=== PATIENT | male | born 1960 | race Caucasian/White ===

== ENCOUNTER 2019-10-08 19:51 | Inpatient (IN) | payer OTHER, SELFPAY ==
[2019-10-08 20:17] VITALS: BP 201/98; PULSE 101; RESP 22; TEMP 36.6; O2SAT 98; BMI 33.9
--- NOTE | 2019-10-08 20:32 | XR_ITS ---
WS: [id number] EXAM: AP CHEST: PORTABLE UPRIGHT DATE OF EXAM: 10/08/2019, 2038 hours COMPARISON: NONE HISTORY: Patient is 58 years old with chills and nausea and vomiting. Prior open heart surgery. FINDINGS: The cardiac silhouette is normal in size. The mediastinal contours show postop sternotomy changes from prior presumed coronary artery bypass. The pulmonary vascularity is normal. Slight chronic sangeeta ng changes seen. Calcified granuloma right upper hemithorax. Lungs are clear of consolidation. There is no effusion or pneumothorax. Scattered changes of arthritis are seen in the spine. Old postop fu thea changes lower cervical spine. XR/XR chest 1V portable [id number] IMPRESSION: No acute pulmonary disease. Slight chronic lung changes.
--- NOTE | 2019-10-08 20:33 | ED_ITS ---
HPI - Nausea/Vomiting/Diarrhea General: Chief complaint: Nausea/Vomiting/Diarrhea Stated complaint: n/v Time Seen by Provider: 10/08/19 20:27 Source: patient Mode of arrival: ambulatory Limitations: no limitations History of Present Illness: HPI Narrative: Mr. Marquez is a nice 58-year-old male who comes in complaining of vomiting and diarrhea. He states his symptoms have been going on all day. He states he has had similar symptoms in the past but a cause can never be found but he has had to go to the hospital to get IV fluids. He denies any chest pain or shortness of breath. He denies any urinary symptoms. He denies any abdominal pain. Patient has felt chilled and is diaphoretic. He is not aware of any fever. He is not aware of any possible ill exposures. He does not report cough, shortness of breath, loss of sense of taste or loss of sense of smell. Associated nausea: Yes Associated symtoms: Reports nausea; Denies change in vision, chest pain, diaphoresis, dizziness, dysuria, fatigue, headache(s), malaise, palpitations or syncope Review of Systems Const: Reports: chills; Denies: fever(s), body aches, fatigue, malaise or diaphoresis Eyes: Denies: change in vision, blurry vision, photophobia, eye discomfort, eye discharge or eye redness ENMT: Denies: throat pain, odynophagia, hoarseness, swelling of lips/tongue, ear or mastoid pain, ear discharge, change in hearing or nasal discharge Card: Denies: chest pain, palpitations, irregular heart rhythm, edema, lightheadedness, syncope, pre-syncope, dyspnea on exertion or orthopnea Resp: Denies: dyspnea, productive cough, non-productive cough, wheezing, hemoptysis or chest congestion GI: Reports: nausea, vomiting and diarrhea; Denies: abdominal pain, hematemesis, coffee ground emesis, heartburn, constipation, GI cramping, hematochezia or melena : Denies: flank pain, dysuria, urinary frequency, urinary urgency or hematuria Musc: Denies: neck pain, back pain, extremity pain, extremity swelling, joint pain, joint swelling, joint redness, joint warmth or joint stiffness Skin/Breast: Denies: rash, pruritus, erythema or skin tenderness Neuro: Denies: headache(s), numbness in extremities, weakness in extremities, sensory changes, lack of coordination, difficulty walking, dizziness, vertigo, confusion, Slurred speech present or seizure-like activity [place]/Lymph: Denies: easy bruising, easy bleeding, petechiae, purpura or enlarged lymph nodes All/Imm: Denies: urticaria, throat swelling, tongue swelling, facial swelling or acute wheezing PFSH ED PFSH: Medical History (Updated 10/08/19 @ 23:47 by Juju Perez MD) Chronic kidney disease, stage III (moderate) Coronary artery disease DM type 2 (diabetes mellitus, type 2) Hypertension Surgical History Hx of CABG Family History (Updated 10/08/19 @ 23:45 by Juju Perez MD) Other Hypertension Social History (Updated 10/08/19 @ 23:46 by Juju Perez MD) Smoking and tobacco status: never smoked Alcohol intake: current Alcohol intake frequency: holidays/special occasions only Substance/Drug Use: never Household members: family and other Details: Lives with his mother Housing: House Marital status: Single Physical Exam Const: COMMON NORMALS: no acute distress, patient oriented x3, no limitations, healthy appearing and well nourished GENERAL APPEARANCE: cooperative, well kempt, well developed and diaphoretic HENMT: COMMON NORMALS: normocephalic, atraumatic, external ears normal, EAC's normal and Normal external nose present HEAD & SCALP: normal to inspection, normocephalic and atraumatic FACE & SINUS: normal facial exam and face symmetric NOSE: Normal external nose present and Normal nares present EXTERNAL EAR: Yes external ears normal EXTERNAL AUDITORY CANAL: EAC's normal MOUTH: Normal oral and palatal mucosa present, lip normal and tongue normal Eye: COMMON NORMALS: Equal, round and reactive pupils present and conjunctivae normal GENERAL EYE: appearance normal, both eyes and all related structures ALIGNMENT: Yes alignment normal PERIORBITAL: periorbital findings normal EYELID: eyelids normal CONJUNCTIVA: Yes conjunctivae normal SCLERA: sclerae normal PUPIL: Yes Equal, round and reactive pupils present Neck/C-Spine: COMMON NORMALS: full ROM, no lymphadenopathy, supple, no meningeal signs and no JVD GENERAL: Yes normal visual inspection and Yes trachea midline Chest: COMMONS NORMALS: normal inspection of the chest and normal palpation of entire chest wall Resp: COMMON NORMALS: normal respiratory effort, No retractions, No use of accessory muscles and clear to auscultation bilaterally EFFORT & INSPECTION: Yes able to speak in complete sentences and Yes symmetric chest movement AUSCULTATION: clear to auscultation bilaterally, no crackles, no rales, no rhonchi and no wheezes Cardio: COMMON NORMALS: no JVD, regular rate, regular rhythm, S1 normal heart sound present and S2 normal heart sound present RATE: regular rate RHYTHM: regular rhythm HEART SOUNDS: S1 normal heart sound present, S2 normal heart sound present, no click, no gallops, no murmurs, no rubs and abnormal split S2 GI: COMMON NORMALS: Soft to palpation and No hepatosplenomegaly present PALPATION: Yes Soft to palpation, No Tenderness to palpation present (GI), No Guarding due to palpation present (GI), No Rigid due to palpation, Yes No hepatosplenomegaly present, No Hernia present, No Palpable mass present and No Pulsatile mass present : COMMON NORMALS: Yes no CVA tenderness BLADDER/KIDNEY EXAM: Yes no CVA tenderness Back/Pelvis: COMMON NORMALS: no CVA tenderness, thoracic and lumbar spine normal to inspection, no thoracic nor lumbar tenderness and thoraco-lumbar ROM normal Extremity: COMMON NORMALS: normal to inspection, full ROM, capillary refill normal, no joint enlargement, no clubbing, cyanosis or edema and no calf tenderness Neuro: COMMON NORMALS: patient oriented x3, CN's II-XII intact bilaterally, moves all extremities, no focal motor deficits and no sensory deficits noted MENINGEAL SIGNS: Yes no meningeal signs SPEECH: speech normal Psych: COMMON NORMALS: mental status grossly normal, Normal thought process present, cooperative, normal affect, speech normal and activity/motor behavior normal APPEARANCE: Yes well kempt SPEECH: Yes normal speech THOUGHT PROCESS: Normal thought process present Skin: COMMON NORMALS: no rashes or lesions noted, turgor normal, no jaundice, no petechiae and no mottling GENERAL SKIN EXAM: no rashes or lesions noted and turgor normal Course Vital Signs: Vital signs: Vital Signs Temperature 99.7 F H 10/09/19 10:10 Pulse Rate 91 10/09/19 10:10 Respiratory Rate 18 10/09/19 10:10 Blood Pressure 170/76 10/09/19 10:10 Pulse Oximetry 94 10/09/19 10:10 MDM - Nausea/Vomiting/Diarrhea Lab Data: Labs: Lab Results 10/08/19 10/08/19 10/08/19 Range/Units 21:00 21:00 21:00 WBC 11.8 H (4.0-10.0) 10^3/ uL RBC 5.83 H (4.1-5.3) 10^6/u L Hgb 17.2 H (11.7-16.6) g/dL Hct 49.9 (42.0-52.0) % MCV 85.6 (80-94) fL MCH 29.5 (28.0-34.0) pg MCHC 34.5 (30.0-36.0) g/dL RDW 11.8 L (12.1-15.1) % Plt Count 264 (130-400) 10^3/c mm MPV 10.1 (7.4-10.4) fL Neut % (Auto) 79.8 % Lymph % (Auto) 12.6 % [place] % (Auto) 6.5 % Eos % (Auto) 0.4 % Baso % (Auto) 0.3 % Neut # (Auto) 9.40 H (1.8-7.7) 10^3/u L Lymph # (Auto) 1.5 (0.8-4.8) 10^3/u L [place] # (Auto) 0.8 (0.2-0.9) 10^3/u L Eos # (Auto) 0.1 (0.0-0.8) 10^3/u L Baso # (Auto) 0.0 (0.0-0.1) 10^3/u L Nucleated RBC % (a uto) 0 % Nucleated RBCs # 0.0 /100WBC D-Dimer (0-0.59) ug/mIFE U Specimen Type Sample Site ABG pH (7.35-7.45) ABG pCO2 (35-45) mmHg ABG pO2 (80.0-100.0) mmH g ABG HCO3 (22-26) mmol/L ABG Base Excess (-2.0-2.0) mmol/ L Bj Test Hematocrit (42-52) % O2 Delivery Device FiO2 % Angle Shear Operator ID Sodium 133 L (136-145) mmol/L Potassium 4.8 (3.5-5.1) mmol/L Chloride 91 L (98-107) mmol/L Carbon Dioxide 25 (22-29) mmol/L Anion Gap 21.8 H (5-19) BUN 20 (6-20) mg/dL Creatinine 1.3 H (0.7-1.2) mg/dL GFR Calculation 56.7 L (90-130) mL/min Glucose 241 H (65-115) mg/dL Calculated Osmolal ity 280 L (285-295) mOsm/k g Lactic Acid 3.2 H (0.5-2.2) mmol/L Calcium 10.5 (8.5-10.5) mg/dL Magnesium 1.8 (1.7-2.3) mg/dL Total Bilirubin 0.8 (0.15-1.2) mg/dL AST 49 H (0-40) U/L ALT 57 H (0-41) U/L Alkaline Phosphata se 56 (40-130) IU/L Troponin T Baselin e (0-15) ng/L Troponin T 120 Min [place] (0-15) ng/L Delta Troponin T (0-10) ABS# Total Protein 7.4 (6.6-8.7) g/dL Albumin 4.9 (3.5-5.2) g/dL Globulin 2.5 (1.3-4.6) g/dL Lipase 29 (13-60) U/L Urine Color (Yellow) Urine Appearance (CLEAR) Urine pH (5-7) Ur Specific Gravit y (1.005-1.030) Urine Protein (Negative) Urine Glucose (UA) (Normal) Urine Ketones (Negative) Urine Blood (Negative) Urine Nitrate (Negative) Urine Bilirubin (NEGATIVE) Urine Urobilinogen (Negative) mg/dL Ur Leukocyte She ase (Negative) Urine RBC (0-2) /hpf Urine WBC (0-5) /hpf Ur Squamous Epith Cells (0-5) Amorphous Sediment Urine Bacteria (NONE) Serum Ketones Negative (Negative) SARS-CoV-2 Ag (Rap id) (Negative) 10/08/19 10/08/19 10/08/19 Range/Units 21:00 21:00 21:19 WBC (4.0-10.0) 10^3/ uL RBC (4.1-5.3) 10^6/u L Hgb (11.7-16.6) g/dL Hct (42.0-52.0) % MCV (80-94) fL MCH (28.0-34.0) pg MCHC (30.0-36.0) g/dL RDW (12.1-15.1) % Plt Count (130-400) 10^3/c mm MPV (7.4-10.4) fL Neut % (Auto) % Lymph % (Auto) % [place] % (Auto) % Eos % (Auto) % Baso % (Auto) % Neut # (Auto) (1.8-7.7) 10^3/u L Lymph # (Auto) (0.8-4.8) 10^3/u L [place] # (Auto) (0.2-0.9) 10^3/u L Eos # (Auto) (0.0-0.8) 10^3/u L Baso # (Auto) (0.0-0.1) 10^3/u L Nucleated RBC % (a uto) % Nucleated RBCs # /100WBC D-Dimer 1.18 H (0-0.59) ug/mIFE U Specimen Type Arterial Sample Site Radial, right ABG pH 7.56 H (7.35-7.45) ABG pCO2 24.0 L (35-45) mmHg ABG pO2 98.5 (80.0-100.0) mmH g ABG HCO3 21.6 L (22-26) mmol/L ABG Base Excess 1.4 (-2.0-2.0) mmol/ L Bj Test Pos Hematocrit 50.0 (42-52) % O2 Delivery Device Room air FiO2 21.0 % Angle Shear Operator ID Harkr Sodium (136-145) mmol/L Potassium (3.5-5.1) mmol/L Chloride (98-107) mmol/L Carbon Dioxide (22-29) mmol/L Anion Gap (5-19) BUN (6-20) mg/dL Creatinine (0.7-1.2) mg/dL GFR Calculation (90-130) mL/min Glucose (65-115) mg/dL Calculated Osmolal ity (285-295) mOsm/k g Lactic Acid (0.5-2.2) mmol/L Calcium (8.5-10.5) mg/dL Magnesium (1.7-2.3) mg/dL Total Bilirubin (0.15-1.2) mg/dL AST (0-40) U/L ALT (0-41) U/L Alkaline Phosphata se (40-130) IU/L Troponin T Baselin e 19 H (0-15) ng/L Troponin T 120 Min [place] (0-15) ng/L Delta Troponin T (0-10) ABS# Total Protein (6.6-8.7) g/dL Albumin (3.5-5.2) g/dL Globulin (1.3-4.6) g/dL Lipase (13-60) U/L Urine Color (Yellow) Urine Appearance (CLEAR) Urine pH (5-7) Ur Specific Gravit y (1.005-1.030) Urine Protein (Negative) Urine Glucose (UA) (Normal) Urine Ketones (Negative) Urine Blood (Negative) Urine Nitrate (Negative) Urine Bilirubin (NEGATIVE) Urine Urobilinogen (Negative) mg/dL Ur Leukocyte She ase (Negative) Urine RBC (0-2) /hpf Urine WBC (0-5) /hpf Ur Squamous Epith Cells (0-5) Amorphous Sediment Urine Bacteria (NONE) Serum Ketones (Negative) SARS-CoV-2 Ag (Rap id) (Negative) 10/08/19 10/08/19 10/08/19 Range/Units 23:00 23:00 23:10 WBC (4.0-10.0) 10^3/ uL RBC (4.1-5.3) 10^6/u L Hgb (11.7-16.6) g/dL Hct (42.0-52.0) % MCV (80-94) fL MCH (28.0-34.0) pg MCHC (30.0-36.0) g/dL RDW (12.1-15.1) % Plt Count (130-400) 10^3/c mm MPV (7.4-10.4) fL Neut % (Auto) % Lymph % (Auto) % [place] % (Auto) % Eos % (Auto) % Baso % (Auto) % Neut # (Auto) (1.8-7.7) 10^3/u L Lymph # (Auto) (0.8-4.8) 10^3/u L [place] # (Auto) (0.2-0.9) 10^3/u L Eos # (Auto) (0.0-0.8) 10^3/u L Baso # (Auto) (0.0-0.1) 10^3/u L Nucleated RBC % (a uto) % Nucleated RBCs # /100WBC D-Dimer (0-0.59) ug/mIFE U Specimen Type Sample Site ABG pH (7.35-7.45) ABG pCO2 (35-45) mmHg ABG pO2 (80.0-100.0) mmH g ABG HCO3 (22-26) mmol/L ABG Base Excess (-2.0-2.0) mmol/ L Bj Test Hematocrit (42-52) % O2 Delivery Device FiO2 % Angle Shear Operator ID Sodium (136-145) mmol/L Potassium (3.5-5.1) mmol/L Chloride (98-107) mmol/L Carbon Dioxide (22-29) mmol/L Anion Gap (5-19) BUN (6-20) mg/dL Creatinine (0.7-1.2) mg/dL GFR Calculation (90-130) mL/min Glucose (65-115) mg/dL Calculated Osmolal ity (285-295) mOsm/k g Lactic Acid (0.5-2.2) mmol/L Calcium (8.5-10.5) mg/dL Magnesium (1.7-2.3) mg/dL Total Bilirubin (0.15-1.2) mg/dL AST (0-40) U/L ALT (0-41) U/L Alkaline Phosphata se (40-130) IU/L Troponin T Baselin e (0-15) ng/L Troponin T 120 Min [place] 23.51 H (0-15) ng/L Delta Troponin T 4.51 (0-10) ABS# Total Protein (6.6-8.7) g/dL Albumin (3.5-5.2) g/dL Globulin (1.3-4.6) g/dL Lipase (13-60) U/L Urine Color Yellow (Yellow) Urine Appearance Clear (CLEAR) Urine pH 6 (5-7) Ur Specific Gravit y 1.015 (1.005-1.030) Urine Protein 1+ H (Negative) Urine Glucose (UA) 4+ H (Normal) Urine Ketones 2+ H (Negative) Urine Blood Neg (Negative) Urine Nitrate Negative (Negative) Urine Bilirubin Neg (NEGATIVE) Urine Urobilinogen Norm (Negative) mg/dL Ur Leukocyte She ase Negative (Negative) Urine RBC Rare (0-2) /hpf Urine WBC Rare (0-5) /hpf Ur Squamous Epith Cells Rare (0-5) Amorphous Sediment Not Reportable Urine Bacteria Trace (NONE) Serum Ketones (Negative) SARS-CoV-2 Ag (Rap id) Negative (Negative) Imaging Data^: CT Abd/Pel: Radiologist's impression: [place] [address] CT Scan Report Signed Patient: Bj Marquez Unit #: [id number] : 1960 Age/Sex: 58 / M ADM Date: 10/08/19 Loc: ER Room/Bed: Attending Dr: Ordering Provider/Ordering MD: Kelli Deluna DO Date of Service: 10/08/19 Procedure(s): CT abdomen pelvis w con* [id number] Accession Number(s): [id number] Report Number: [id number] PROCEDURE INFORMATION: Exam: CT Abdomen And Pelvis With Contrast Exam date and time: 10/08/2019 9:55 PM Age: 58 years old Clinical indication: Nausea and vomiting and other: Diarrhea; Additional info: Abdominal pain TECHNIQUE: Imaging protocol: Computed tomography of the abdomen and pelvis with intravenous contrast. Radiation optimization: All CT scans at this facility use at least one of these dose optimization techniques: automated exposure control; mA and/or kV adjustment per patient size (includes targeted exams where dose is matched to clinical indication); or iterative reconstruction. Contrast material: VISI 320; Contrast volume: 95 ml; Contrast route: INTRAVENOUS (IV); COMPARISON: No relevant prior studies available. RADIATION DOSE METRICS: Total DLP (mGy-cm): 1699.31 FINDINGS: Liver: The liver is normal. Gallbladder and bile ducts: The gallbladder is normal.No calcified calculi. Normal bile ducts. Pancreas: The pancreas is normal. Spleen: The spleen is normal. Adrenals: The adrenals are normal. Kidneys and ureters: The kidneys are normal.No hydronephrosis. Stomach and bowel: No bowel wall thickening. No bowel obstruction. Appendix: The appendix is well visualized and is normal. Intraperitoneal space: There is no free fluid or fluid collection. There is no free air. Vasculature: Unremarkable. No abdominal aortic aneurysm. Lymph nodes: Unremarkable. No enlarged lymph nodes. Bladder: The bladder is normal with no evidence of calculi. Reproductive: Unremarkable as visualized. Bones/joints: There is chronic bilateral L5 spondylolysis with L5-S1 spondylolisthesis. No fracture. Soft tissues: Unremarkable. CT/CT abdomen pelvis w con* [id number] IMPRESSION: 1. No acute findings. 2. Chronic bilateral L5 spondylolysis. No acute fracture. The Radiation Dose CTDIVOL = (mGy): DLP = 1699.31 (mGy-cm) Dictated By: Esteban Bowman MD Signed By: Esteban Bowman MD Signed Date/Time: 10/08/192220 DD/ 20 EKG Data^: EKG 1: Attestation: I personally reviewed and interpreted this EKG as follows: EKG interpretation date: 10/08/19 EKG interpretation time: 20:57 Interpretation: Normal sinus rhythm with first-degree AV block, left bundle branch block, nonspecific ST and T wave changes. No evidence of scar Bosa rule findings. Reviewed with Dr. Rowland EKG 2: Attestation: I personally reviewed and interpreted this EKG as follows: EKG interpretation date: 10/08/19 EKG interpretation time: 22:42 Interpretation: Normal sinus rhythm at 83 beats a minute, first-degree AV block, right bundle branch block, no acute ST-T wave changes. Unchanged from previous. Discharge Plan Discharge Patient Disposition: Admitted As Inpatient Admit Provider: Juju Perez Discharge Date/Time: 10/09/19 01:22 Coding Level of Care Code ED Plate Cleaner for Chg Fwd Exam Comprehensive
[2019-10-08] MEDS: ondansetron 2 mg/ML SDV 2 mL 4 MG IVP ×2 (21:00→23:30)
[2019-10-08] MEDS: sodium chloride 0.9% 1,000 ML 999 ML IV ×2 (21:15→23:58)
[2019-10-08 21:29] LABS: ABG PH Result 7.56 (7.35-7.45); Base Excess ABG 1.4 mmol/L (-2.0-2.0); Blood Gas Allen Test Pos; Blood Gas Sample Type Arterial; HCO3 ABG 21.6 mmol/L (22-26); PO2 ABG 98.5 mmHg (80.0-100.0)
[2019-10-08 21:31] LABS: Blood Gas Operator Identificat HARKR; Blood Gas Sample Site Radial, right; Oxygen Device ROOM AIR
[2019-10-08 21:32] LABS: Basophils % 0.3 %; Eosinophils # 0.1 10^3/uL (0.0-0.8); Eosinophils % 0.4 %; Hematocrit 49.9 % (42.0-52.0); Hemoglobin 17.2 g/dL (11.7-16.6); Lymphocytes # 1.5 10^3/uL (0.8-4.8); Lymphocytes % 12.6 %; Mean Corpuscular HGB Conc 34.5 g/dL (30.0-36.0); Mean Corpuscular Hemoglobin 29.5 pg (28.0-34.0); Mean Corpuscular Volume 85.6 fL (80-94); Mean Platelet Volume 10.1 fL (7.4-10.4); Monocytes # 0.8 10^3/uL (0.2-0.9); Monocytes % 6.5 %; Neutrophils % 79.8 %; Nucleated Red Blood Cells % 0 %; Platelet Count 264 10^3/cmm (130-400); Red Blood Count 5.83 10^6/uL (4.1-5.3); Red Cell Distribution Width 11.8 % (12.1-15.1); White Blood Count 11.8 10^3/uL (4.0-10.0)
[2019-10-08 21:46] LABS: Alanine Aminotransferase 57 U/L (0-41); Albumin Level 4.9 g/dL (3.5-5.2); Alkaline Phosphatase 56 IU/L (40-130); Blood Urea Nitrogen 20 mg/dL (6-20); Calcium 10.5 mg/dL (8.5-10.5); Carbon Dioxide 25 mmol/L (22-29); Chloride 91 mmol/L (98-107); Globulin 2.5 g/dL (1.3-4.6); Glomerular Filtration Rate 56.7 mL/min (90-130); Glucose 241 mg/dL (65-115); Ketone (Acetest) Serum Negative (Negative); Lipase 29 U/L (13-60); Magnesium 1.8 mg/dL (1.7-2.3); Osmolality Calculated 280 mOsm/kg (285-295); Sodium 133 mmol/L (136-145); Total Bilirubin 0.8 mg/dL (0.15-1.2); Total Protein 7.4 g/dL (6.6-8.7)
[2019-10-08 21:48] LABS: Lactic Sepsis W/Reflex 3.2 mmol/L (0.5-2.2)
[2019-10-08 21:49] LABS: Troponin(5th) Baseline 19 ng/L (0-15)
[2019-10-08 21:51] LABS: Anion Gap 21.8 (5-19); Aspartate Amino Transferase 49 U/L (0-40); Potassium 4.8 mmol/L (3.5-5.1)
--- NOTE | 2019-10-08 21:54 | CTR_ITS ---
PROCEDURE INFORMATION: Exam: CT Abdomen And Pelvis With Contrast Exam date and time: 10/08/2019 9:55 PM Age: 58 years old Clinical indication: Nausea and vomiting and other: Diarrhea; Additional info: Abdominal pain TECHNIQUE: Imaging protocol: Computed tomography of the abdomen and pelvis with intravenous contrast. Radiation optimization: All CT scans at this facility use at least one of these dose optimization techniques: automated exposure control; mA and/or kV adjustment per patient size (includes targeted exams where dose is matched to clinical indication); or iterative reconstruction. Contrast material: VISI 320; Contrast volume: 95 ml; Contrast route: INTRAVENOUS (IV); COMPARISON: No relevant prior studies available. RADIATION DOSE METRICS: Total DLP (mGy-cm): 1699.31 FINDINGS: Liver: The liver is normal. Gallbladder and bile ducts: The gallbladder is normal.No calcified calculi. Normal bile ducts. Pancreas: The pancreas is normal. Spleen: The spleen is normal. Adrenals: The adrenals are normal. Kidneys and ureters: The kidneys are normal.No hydronephrosis. Stomach and bowel: No bowel wall thickening. No bowel obstruction. Appendix: The appendix is well visualized and is normal. Intraperitoneal space: There is no free fluid or fluid collection. There is no free air. Vasculature: Unremarkable. No abdominal aortic aneurysm. Lymph nodes: Unremarkable. No enlarged lymph nodes. Bladder: The bladder is normal with no evidence of calculi. Reproductive: Unremarkable as visualized. Bones/joints: There is chronic bilateral L5 spondylolysis with L5-S1 spondylolisthesis. No fracture. Soft tissues: Unremarkable. CT/CT abdomen pelvis w con* [id number] IMPRESSION: 1. No acute findings. 2. Chronic bilateral L5 spondylolysis. No acute fracture. The Radiation Dose CTDIVOL = (mGy): DLP = 1699.31 (mGy-cm)
--- NOTE | 2019-10-08 22:01 | PC.NURSE ---
during pt rounding, pt stating he is feeling gassy with belching. notified, orders obtained for regmelony. Adm prior to CT scann
[2019-10-08] MEDS: metoclopramide 5 mg/mL SDV 2 mL 10 MG IV (22:05)
[2019-10-08] MEDS: iodixanol 320 mg/mL 100mL Btl IV (22:06)
--- NOTE | 2019-10-08 22:32 | ECG_ITS ---
[facility] Test Date: 2019-10-08 Pat Name: Bj Marquez Department: Room: Gender: Male Documentation Coordinator: : 1960 Requested By: Kelli Beltrán Order Number: [id number] Yolande MD: Cinthya Rowland M.D. Measurements Intervals [place] Rate: 83 P: 55 MD: 227 QRS: -82 QRSD: 139 T: 76 QT: 390 QTc: 461 Interpretive Statements SINUS RHYTHM WITH FIRST DEGREE AV BLOCK LEFT AXIS DEVIATION [QRS AXIS < -30] RIGHT BUNDLE BRANCH BLOCK [120+ ms QRS DURATION, UPRIGHT V1, 40+ ms S IN I/aVL/V4/V5/V6] POSSIBLE ANTERIOR MYOCARDIAL INFARCTION , PROBABLY OLD [30 ms Q WAVE IN V3/V4, OR R < 0.2 mV IN V4] No previous ECG available for comparison Electronically Signed On 10-09-2019 23:05:46 CDT by Cinthya Rowland M.D. [email or web address]
[2019-10-08 23:08] LABS: Reflex Lactate Order REFLEX LACTIC ORDERD
--- NOTE | 2019-10-08 23:16 | PM.HP ---
Providers/Chief Complaint Chief Complaint: n/v History of Present Illness Bj Marquez is a 58 year old male who carries history of chronic kidney disease stage III, CABG 2018 secondary to coronary perforation during cardiac catheterization, diabetes, hypertension, came in with chief complaint of nausea vomiting and diarrhea. Patient is stating that he is from [place] on a business trip, he was in [place] yesterday where he ate seafood and today he started experiencing nausea after he woke up. He experienced more than 10 episodes of vomiting along diarrhea, he had similar episode 3 weeks ago for which he did not seek medical help(his symptoms resolved). Today because of intractable nausea vomiting and diarrhea he decided to come to the hospital for further evaluation. He is denying fever, blood in his stool, sick contacts, chest pain, palpitations, shortness of breath. He denies recent use of antibiotics, he is a non-smoker, drinks alcohol occasionally. Diagnosis in the ER revealed hypertension, tachycardia, extreme dehydration, lactic acidosis, intractable nausea and vomiting, afebrile, hemoconcentration, ketones negative, hyperglycemia, creatinine 1.3, mild abnormal transaminases, COVID antigen negative, EKG showing right bundle branch block wide QRS Abdominal CT did not show acute pathology, chest x-ray normal Review of Systems Const: Reports: chills, change in appetite and fatigue; Denies: fever(s) Eyes: Denies: change in vision ENMT: Denies: throat pain Card: Denies: chest pain Resp: Denies: dyspnea GI: Reports: nausea, vomiting and diarrhea; Denies: abdominal pain : Denies: flank pain Musc: Denies: neck pain Skin/Breast: Denies: rash Neuro: Denies: headache(s) Psych: Denies: anxiety Endo: Denies: polyuria [place]/Lymph: Denies: easy bruising All/Imm: Denies: urticaria Medications/Allergies Allergies Allergy/AdvReac Type Severity Reaction Status Date / Time No Known Allergies Allergy Verified 10/08/19 20:24 PFSH Acute PFSH: Medical History (Updated 10/08/19 @ 23:47 by Juju Perez MD) Chronic kidney disease, stage III (moderate) Coronary artery disease DM type 2 (diabetes mellitus, type 2) Hypertension Surgical History Hx of CABG Family History (Updated 10/08/19 @ 23:45 by Juju Perez MD) Other Hypertension Social History (Updated 10/08/19 @ 23:46 by Juju Perez MD) Smoking and tobacco status: never smoked Alcohol intake: current Alcohol intake frequency: holidays/special occasions only Substance/Drug Use: never Household members: family and other Details: Lives with his mother Housing: House Marital status: Single Vitals/I&O/Wt Last Vital Signs Temp 97.8 F 10/08/19 20:17 Pulse 101 H 10/08/19 20:17 Resp 22 H 10/08/19 20:17 BP 201/98 10/08/19 20:17 Pulse Ox 98 10/08/19 20:17 Weight last 48 hrs Weight 113.398 kg Physical Exam Narrative: EXAM NARRATIVE: This is a middle-aged male, who is laying in his bed with his eyes closed feeling nauseous Systemic hypertension Flushed skin, suntanned S1, S2 no murmur, CABG scar anterior chest Abdomen soft nontender nondistended bowel sound present Lungs are clear to auscultation EOMI, PERRLA Extremely dehydrated, dry buccal mucous membrane Lower extremity no edema gangrene ulcer Appropriate mood and affect Data : 10/08/19 21:00 10/08/19 21:00 A&P Assessment and plan (1) Gastroenteritis: Status: Acute (2) Dehydration: Status: Acute (3) Acute worsening of stage 3 chronic kidney disease: Status: Acute (4) DM type 2 (diabetes mellitus, type 2): Status: Acute (5) Hypertension: Status: Acute Additional A&P Information Gastroenteritis CT abdomen unremarkable Had seafood 24 hours before onset of symptoms in [place] Patient is afebrile, no bleeding per rectum No need of antibiotics, hydrate with IV fluids Extreme dehydration with lactic acidosis, high anion gap We will send stool sample for ova and parasite because of abnormal transaminases, we will check hepatitis panel COVID antigen negative Severe dehydration continue fluid resuscitation High anion gap metabolic acidosis secondary to lactic acidemia due to dehydration Acute on chronic kidney disease due to dehydration Anticipating provement with fluid cessation no baseline creatinine available, patient is from [place], Type 2 diabetes, without DKA Hyperglycemia, full liquid diet with sliding scale Right bundle branch block without active chest pain or symptoms Full code DVT prophylaxis Heparin Attestations Medical Necessity Statement*: Anticipating discharge in less than 48 hours continued IV fluid suspicion for gastroenteritis induced dehydration Time Spent in Patient Care: (>than 50% of time spent in counselling and/or direct pt care on unit). 50mins Coding Level of Care Code Acute Composing Room Machinist Apprentice for Chg Fwd Diagnoses Gastroenteritis K52.9 Dehydration E86.0 Acute worsening of stage 3 chronic kidney disease N18.3 DM type 2 (diabetes mellitus, type 2) E11.9 Hypertension I10
[2019-10-08 23:29] LABS: SARS Covid-2 Antigen Negative (Negative)
[2019-10-08] MEDS: labetalol 5 mg/mL SDV 20mL 10 MG IVP (23:40)
[2019-10-08 23:44] LABS: Specific Gravity, Urine 1.015 (1.005-1.030); Urine Appearance Clear (CLEAR); Urine Color Yellow (Yellow); pH Urine 6 (5-7)
[2019-10-08 23:44] LABS: D Dimer 1.18 ug/mIFEU (0-0.59)
[2019-10-08 23:45] LABS: Bacteria Urine TRACE; Bilirubin Urine Neg (NEGATIVE); Blood Urine Neg (Negative); Glucose Urine UA 4+ (Normal); Ketones Urine 2+ (Negative); Leukocyte Esterase Urine Negative (Negative); Nitrate Urine Negative (Negative); Protein Urine 1+ (Negative); RBC Urine RARE /hpf (0-2); Squamous Epithelial Cell Urine RARE (0-5); Urobilinogen Urine Norm (Negative); WBC Urine RARE /hpf (0-5)
[2019-10-09] VITALS (12 sets, daily range): BP systolic 157–205; BP diastolic 76–95; PULSE 81–113; RESP 18–20; TEMP 37–37.6; O2SAT 94–98
[2019-10-09 00:15] LABS: Troponin 5 2HR 23.51 ng/L (0-15); Troponin 5 2HR Delta 4.51 ABS# (0-10)
--- NOTE | 2019-10-09 01:36 | CTR_ITS ---
PROCEDURE INFORMATION: Exam: CT Angiography Chest With Contrast Exam date and time: 10/09/2019 1:45 AM Age: 58 years old Clinical indication: Abnormal findings; Abnormal diagnostic tests; Elevated d-dimer; Prior surgery; Surgery type: Cabg; Additional info: High d-dimer TECHNIQUE: Imaging protocol: Computed tomographic angiography of the chest with intravenous contrast. 3D rendering (Not supervised by radiologist): MIP and/or 3D reconstructed images were created by the technologist. Radiation optimization: All CT scans at this facility use at least one of these dose optimization techniques: automated exposure control; mA and/or kV adjustment per patient size (includes targeted exams where dose is matched to clinical indication); or iterative reconstruction. Contrast material: VISI 320; Contrast volume: 83 ml; Contrast route: INTRAVENOUS (IV); COMPARISON: CR XR chest 1V portable [id number] 10/08/2019 8:36 PM RADIATION DOSE METRICS: Total DLP (mGy-cm): 730.23 FINDINGS: Pulmonary arteries: Normal. No pulmonary emboli. Aorta: Unremarkable. No aortic aneurysm. No aortic dissection. Lungs: A 5 x 8 mm calcified granuloma seen in the right upper lobe. Pleural space: Unremarkable. No pneumothorax. No pleural effusion. Heart: Calcifications are seen within the coronary arteries. Lymph nodes: Unremarkable. No enlarged lymph nodes. Gallbladder and bile ducts: There is subtle increased density seen within the gallbladder possibly representing gallbladder sludge. Pancreas: The pancreas appears somewhat atrophic. Kidneys and ureters: Strandy opacities are seen in the perinephric fascia bilaterally most probably representing chronic scarring. Bones/joints: Status post ACDF of the lower cervical spine. Status post median sternotomy. Soft tissues: There is asymmetric gynecomastia on the left. CT/CT angio chest PE protcl [id number] IMPRESSION: 1. There is no evidence for pulmonary emboli. 2. Benign 5 x 8 mm calcified granuloma in the right upper lobe. 3. Asymmetric gynecomastia on the left. Clinical follow-up is suggested initially. 4. Subtle increased density within the gallbladder may represent gallbladder sludge. 5. Atrophic appearing pancreas Radiation Dose CTDIVOL = (mGy): DLP = 730.23 (mGy-cm)
[2019-10-09 02:11] LABS: Glucose Point of Care 345 mg/dL (70-110)
--- NOTE | 2019-10-09 02:32 | ECG_ITS ---
[facility] Test Date: 2019-10-09 Pat Name: Bj Marquez Department: Room: 251 Gender: Male Prep Cook: : [id number] Requested By: Kelli Beltrán Order Number: [id number] Yolande MD: Cinthya Rowland M.D. Measurements Intervals [place] Rate: 75 P: 75 UT: 224 QRS: -76 QRSD: 150 T: 75 QT: 409 QTc: 460 Interpretive Statements SINUS RHYTHM WITH FIRST DEGREE AV BLOCK WITH OCCASIONAL SUPRAVENTRICULAR PREMATURE COMPLEXES RIGHT BUNDLE BRANCH BLOCK [120+ ms QRS DURATION, UPRIGHT V1, 40+ ms S IN I/aVL/V4/V5/V6] LEFT ANTERIOR FASCICULAR BLOCK [QRS AXIS <= -45, QR IN I, RS IN II] POSSIBLE ANTERIOR MYOCARDIAL INFARCTION [30 ms Q WAVE IN V3/V4, OR R < 0.2 mV IN V4], PROBABLY OLD INTERPRETATION BASED ON A DEFAULT AGE OF 40 YEARS Compared to ECG 10/08/2019 22:42:14 Left anterior fascicular block now present Left-axis deviation no longer present Myocardial infarct finding still present Electronically Signed On 10-09-2019 23:06:31 CDT by Cinthya Rowland M.D. [id number] f
[2019-10-09] MEDS: sodium chloride 0.9% 1,000 ML 100 ML IV ×3 (02:37→23:14)
[2019-10-09] MEDS: heparin 5,000 unit/mL INJ 1 mL 5000 UNIT SUBCUT ×3 (02:37→16:43)
[2019-10-09 02:42] LABS: Lactate (Lactic Acid level) 2.2 mmol/L (0.5-2.2)
--- NOTE | 2019-10-09 03:19 | PC.NURSE ---
Critical Trop 6h Delta is 14.60, Dr. Perez notified. BP is now 203/95. Pt requesting antacid medication. Dr. Perez has been notified. Pt has been having nausea with emesis x 2 clear/mucous with small amount of blood tinge noted. Pt denies any chest pain or any other pain at this time.
[2019-10-09 03:47] LABS: Hepatitis A Antibody IgM Non-Reactive (Nonreactive); Hepatitis B Core IgM Non-Reactive (Nonreactive); Hepatitis B Surface Antigen Non-Reactive (Nonreactive); Hepatitis C Virus Antibody Non-Reactive (Nonreactive)
[2019-10-09] MEDS: pantoprazole 40 mg SDV IVP (03:56)
[2019-10-09] MEDS: hyDRALAzine 20 mg/mL INJ 1 mL 10 MG IVP (03:56)
[2019-10-09 07:24] LABS: Glucose Point of Care 314 mg/dL (70-110)
--- NOTE | 2019-10-09 07:25 | PC.NURSE ---
The patient just had a coughing spell. i reported the high bp of 205/90 to Lucretia the nurse for the patient
[2019-10-09] MEDS: amlodipine 10 mg Tablet PO (08:20)
[2019-10-09] MEDS: ondansetron 2 mg/ML SDV 2 mL 4 MG IVP ×3 (08:24→22:30)
--- NOTE | 2019-10-09 09:25 | PC.NURSE ---
patient having nausea and no appetite. no vomiting. Given Zofran. No improvement at this time.
[2019-10-09 11:33] LABS: Glucose Point of Care 310 mg/dL (70-110)
--- NOTE | 2019-10-09 13:46 | PC.CHAP ---
Pastoral Care Encounter/Spiritual Assessment Type of Contact [] Declined joss house keeper visit [] Patient/Family/Request visit [] Outpatient visit [] Follow-up visit [] Physician referral [] Code/Alert [x] Routine visit [] Staff referral [] Actively dying [] Patient sleeping [] Family support [] [] Out of room [] Palliative care [] [] Receiving care in room [] Pre-surgical visit [] Trauma [] Long length of stay [] ICU visit [] Other: Relational/Emotional Strength [x] Patient feels connected with others/family/visitors/staff [] Distress [] Loneliness/isolation [] Abandonment Spirituality of Patient [x] Person of Myrna [] Attends Mandaeism of their Myrna [] Believes in Prayer [] Reads Bible or Quaker materials [x] There are Spiritual issues to be addressed Enterostomal Therapy Nurse Interventions [x] Prayer [x] Active listening [x] Non-anxious presence [x] Spiritual/emotional support [] Crisis/trauma care [] Spiritual counseling [] Bereavement support [] Provided bereavement packet [] Provided Bible/devotional materials [] Provided toy/stuffed animal, coloring book to patient or family member [] Provided Communion [] Anointing/[place] [] Salvation [x] Completed spiritual assessment [] Other: Impact on Illness or Injury [] Angry [] Fearful [] Anxious [] Often cries [] Exhaustion [] Unable to work [] Unable to attend baptism [] Unable to walk/stand [] Unable to read [] Unable to drive [] Unable to eat/drink [] Unable to sleep [] Unable to be with family [] Patient intubated [] Other: Summary Time spent with patient 10 minutes
[2019-10-09 16:24] LABS: Glucose Point of Care 228 mg/dL (70-110)
[2019-10-09] MEDS: metoclopramide 5 mg/mL SDV 2 mL IVP (16:44)
[2019-10-09] MEDS: metoprolol tartrate 25 mg Tablet PO (17:24)
--- NOTE | 2019-10-09 18:25 | P.PN_ITS ---
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 Data : 10/08/19 21:00 10/10/19 10:15 A&P Additional A&P Information Gastroenteritis CT abdomen unremarkable CtA chest pending Had seafood 24 hours before onset of symptoms in [place] Patient is afebrile, no bleeding per rectum No need of antibiotics, hydrate with IV fluids Extreme dehydration with lactic acidosis, high anion gap We will send stool sample for ova and parasite because of abnormal transaminases, we will check hepatitis panel COVID antigen negative Severe dehydration continue fluid resuscitation High anion gap metabolic acidosis secondary to lactic acidemia due to dehydration Acute on chronic kidney disease due to dehydration Anticipating provement with fluid cessation no baseline creatinine available, patient is from [place], Type 2 diabetes, without DKA Hyperglycemia, full liquid diet with sliding scale Right bundle branch block without active chest pain or symptoms resume home dose of eplerenone Full code DVT prophylaxis Heparin Attestations Medical Necessity Statement*: CTA chest pending, optmization of bowel function Coding Level of Care Code Acute Platform Operations Director for Cynthia Gavin
[2019-10-09] MEDS: iodixanol 320 mg/mL 100mL Btl IV (22:06)
[2019-10-09 22:25] LABS: Glucose Point of Care 192 mg/dL (70-110)
[2019-10-10] VITALS (8 sets, daily range): BP systolic 142–200; BP diastolic 70–93; PULSE 72–112; RESP 18–20; TEMP 36.8–37.3; O2SAT 94–98
[2019-10-10] MEDS: heparin 5,000 unit/mL INJ 1 mL 5000 UNIT SUBCUT ×3 (01:27→17:19)
[2019-10-10 06:46] LABS: Glucose Point of Care 397 mg/dL (70-110)
[2019-10-10] MEDS: metoclopramide 5 mg/mL SDV 2 mL IVP ×2 (08:36→14:14)
[2019-10-10] MEDS: ondansetron 2 mg/ML SDV 2 mL 4 MG IVP ×2 (08:37→19:51)
--- NOTE | 2019-10-10 09:24 | PC.NURSE ---
Pt nurse notified of blood pressure readings.
[2019-10-10] MEDS: amlodipine 10 mg Tablet PO (09:26)
[2019-10-10] MEDS: aspirin 81 mg EC Tablet PO (09:26)
[2019-10-10] MEDS: metoprolol tartrate 25 mg Tablet PO ×2 (09:26→17:20)
[2019-10-10 10:59] LABS: Anion Gap 18.3 (5-19); Blood Urea Nitrogen 18 mg/dL (6-20); Calcium 8.7 mg/dL (8.5-10.5); Carbon Dioxide 25 mmol/L (22-29); Chloride 92 mmol/L (98-107); Glomerular Filtration Rate 62.2 mL/min (90-130); Glucose 339 mg/dL (65-115); Osmolality Calculated 284 mOsm/kg (285-295); Potassium 3.3 mmol/L (3.5-5.1); Sodium 132 mmol/L (136-145)
[2019-10-10 11:01] LABS: Troponin T (5th) Once 47 ng/L (0-15)
[2019-10-10 11:36] LABS: Glucose Point of Care 314 mg/dL (70-110)
[2019-10-10 13:00] LABS: Glucose Point of Care 217 mg/dL (70-110)
[2019-10-10] MEDS: lisinopril 10 mg Tablet PO (14:15)
[2019-10-10] MEDS: sodium chloride 0.9% 1,000 ML 100 ML IV (14:20)
[2019-10-10 16:14] LABS: Glucose Point of Care 222 mg/dL (70-110)
--- NOTE | 2019-10-10 17:34 | XR_ITS ---
WS: [id number] EXAM: ABDOMINAL KUB DATE OF EXAMINATION: 10/10/2019, 1816 hours COMPARISON: None. HISTORY: Patient is 58 years old with ileus. FINDINGS: Bowel gas pattern is normal. Air in nondilated colon down to the level of the rectum. No small bowel distention or gas-filled dilated small bowel is seen. Moderate amount of stool. There are no imaging findings to suggest this patient has an underlying ileus. No abnormal soft tissue calcifications are seen. Scattered changes of arthritis are seen in the spine. XR/XR abdomen 1V* [id number] IMPRESSION: Normal bowel gas pattern. No imaging findings to suggest an ileus.
--- NOTE | 2019-10-10 17:37 | P.PN_ITS ---
Subjective Subjective: Interval history: Hypertensive with SBP >200/96 today, continues to c/o abdominal belching, nausea and discomfort, no diarrhea, last BM sunday Medications: Reviewed: Yes Vitals/I&O/Wt Last Vital Signs Temp 99.0 F 10/10/19 17:07 Pulse 82 10/10/19 17:07 Resp 18 10/10/19 17:07 BP 172/81 10/10/19 17:07 Pulse Ox 96 10/10/19 17:07 10/10/19 10/10/19 10/10/19 06:59 14:59 22:59 Intake Total 360 / 2760 1600 / 1600 240 / 1840 Output Total 650 / 1830 600 / 600 300 / 900 Balance -290 / 930 1000 / 1000 -60 / 940 Weight last 48 hrs Weight 113.398 kg Physical Exam Narrative: EXAM NARRATIVE: GEN: Awake, alert and oriented, no acute distress , ambulating in hallway CVS: S1S2 N RS: CTA B/L except crackles over RUL Abd: Soft, nt/nd , bs+ ON AIR TALENT: no focal neuro deficits Data : 10/08/19 21:00 10/10/19 10:15 A&P Assessment and plan (1) Gastroenteritis: Status: Acute (2) DM type 2 (diabetes mellitus, type 2): Status: Acute (3) Hypertension: Status: Acute (4) Hyperglycemia: Status: Acute (5) Dehydration: Status: Acute (6) Acute worsening of stage 3 chronic kidney disease: Status: Acute Additional A&P Information # Gastroenteritis CT abdomen unremarkable CTA chest with no PE, gallbladder sludging noted Had seafood 24 hours before onset of symptoms in [place] Diarrhea has resolved but continues to have significant nausea and dry heaves Dehydration improving, discontinued IVF COVID antigen negative check x ray abdomen to r/o ileus #Severe dehydration continue fluid resuscitation, now resolved High anion gap metabolic acidosis secondary to lactic acidemia due to dehydration # uncontrolled DM: add lantus 15U at bedtime # Hypertension, poorly controlled, continue 10mg po amlodipine, resume home dose of lisinopril, add hydralazine 10mg iv q4h prn , increase metoprolol to 50 BID #Right bundle branch block without active chest pain or symptoms Full code DVT prophylaxis Heparin Dispo: patient from [place], [place], currently living in hotel in [place]. Will have to self drive to [place] [facility] [employer] when ready for discharge, awaiting medical optimization Attestations Medical Necessity Statement*: BP control, Blood sugar control, inconsistent improvemtn in symptoms Coding Level of Care Code Acute Senior Clinical Research Scientist for Chg Fwd Diagnoses Gastroenteritis K52.9 DM type 2 (diabetes mellitus, type 2) E11.9 Hypertension I10 Hyperglycemia R73.9 Dehydration E86.0 Acute worsening of stage 3 chronic kidney disease N18.3
[2019-10-10] MEDS: metoprolol tartrate 25 mg Tablet 50 MG PO (18:01)
[2019-10-10] MEDS: fluticasone nasal spray 16gm Btl 2 SPRAY NASAL (18:05)
[2019-10-10] MEDS: cefTRIAXone 1,000 MG in sodium chloride 0.9% (plus) 50 ML 100 MG IV (19:53)
[2019-10-10 21:17] LABS: Glucose Point of Care 262 mg/dL (70-110)
[2019-10-10] MEDS: metoclopramide 5 mg/mL SDV 2 mL 10 MG IVP (21:31)
[2019-10-10] MEDS: insulin glargine 100 units/1 mL 15 UNIT SUBCUT (21:32)
[2019-10-10] MEDS: sodium chloride 0.9% 1,000 ML 50 ML IV (23:38)
[2019-10-11 00:45] VITALS: BP 168/84; PULSE 78; RESP 20; TEMP 36.9; O2SAT 96
[2019-10-11] MEDS: heparin 5,000 unit/mL INJ 1 mL 5000 UNIT SUBCUT ×3 (02:22→17:16)
[2019-10-11] MEDS: ondansetron 2 mg/ML SDV 2 mL 4 MG IVP ×4 (02:30→20:01)
[2019-10-11 04:56] LABS: Alanine Aminotransferase 22 U/L (0-41); Alkaline Phosphatase 43 IU/L (40-130); Anion Gap 16.2 (5-19); Aspartate Amino Transferase 21 U/L (0-40); Blood Urea Nitrogen 19 mg/dL (6-20); Calcium 8.4 mg/dL (8.5-10.5); Carbon Dioxide 26 mmol/L (22-29); Chloride 93 mmol/L (98-107); Glomerular Filtration Rate 68.8 mL/min (90-130); Glucose 229 mg/dL (65-115); Osmolality Calculated 278 mOsm/kg (285-295); Potassium 3.2 mmol/L (3.5-5.1); Sodium 132 mmol/L (136-145); Total Bilirubin 0.6 mg/dL (0.15-1.2)
[2019-10-11 04:58] LABS: Troponin T (5th) Once 28 ng/L (0-15)
[2019-10-11 05:00] VITALS: BP 150/78; PULSE 84; RESP 18; TEMP 37.1; O2SAT 95
[2019-10-11 06:34] LABS: Glucose Point of Care 297 mg/dL (70-110)
[2019-10-11 07:22] VITALS: BP 172/92; PULSE 85; RESP 22; TEMP 37.2; O2SAT 95
[2019-10-11] MEDS: lisinopril 10 mg Tablet PO (08:21)
[2019-10-11] MEDS: fluticasone nasal spray 16gm Btl 2 SPRAY NASAL (08:21)
[2019-10-11] MEDS: aspirin 81 mg EC Tablet PO (08:21)
[2019-10-11] MEDS: metoprolol tartrate 25 mg Tablet 50 MG PO ×2 (08:21→17:16)
[2019-10-11 10:52] LABS: Glucose Point of Care 221 mg/dL (70-110)
[2019-10-11] MEDS: amlodipine 10 mg Tablet PO (11:05)
[2019-10-11 11:45] VITALS: BP 148/86; PULSE 64; RESP 20; TEMP 36.8; O2SAT 95
[2019-10-11] MEDS: sennosides-docusate Tablet 1 TAB PO (13:51)
[2019-10-11] MEDS: magnesium citrate Btl 296 mL PO ×2 (15:06→20:03)
[2019-10-11 15:34] VITALS: BP 138/86; PULSE 68; RESP 22; TEMP 36.9; O2SAT 94
[2019-10-11 16:42] LABS: Glucose Point of Care 285 mg/dL (70-110)
--- NOTE | 2019-10-11 16:45 | P.PN_ITS ---
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 Data : 10/08/19 21:00 10/11/19 04:11 A&P Assessment and plan (1) Gastroenteritis: Status: Acute (2) DM type 2 (diabetes mellitus, type 2): Status: Acute (3) Hypertension: Status: Acute (4) Hyperglycemia: Status: Acute (5) Dehydration: Status: Acute (6) Acute worsening of stage 3 chronic kidney disease: Status: Acute Additional A&P Information # Gastroenteritis CT abdomen unremarkable, lipase 71 CTA chest without PE Had seafood 24 hours before onset of symptoms in [place] Patient is afebrile, no bleeding per rectum or hematemesis COVID antigen negative c diff negative Add protonix 40mg po BID abdomen x ray to r/o ileus with moderate ampunt of stool- order mag citrate Severe dehydration, now improving High anion gap metabolic acidosis secondary to lactic acidemia due to dehydration now resolved Acute on chronic kidney disease due to dehydration, now resolved Uncontrolled HTN, added amlodipine 10mg and increased metorpolol to 50mg BID Type 2 diabetes, without DKA, now better controlled fingersticks Hyperglycemia, full liquid diet with sliding scale Right bundle branch block without active chest pain or symptoms, troponin mildly elevated liely as result of dehydration, trended down this am Full code DVT prophylaxis Heparin Dispo: patient is from [place], [place] and currently staying at a hotel here. He is extremely anxious to return to his hotel room alone an dthen to drive back home. His family will likely drive in tomorrow to pick him up Attestations Medical Necessity Statement*: mag citrate, protonix added , monitor for improvement, family to pick him up tomorrow Coding Level of Care Code Acute Medical Diagnostic Radiographer for Chg Fwd Diagnoses Gastroenteritis K52.9 DM type 2 (diabetes mellitus, type 2) E11.9 Hypertension I10 Hyperglycemia R73.9 Dehydration E86.0 Acute worsening of stage 3 chronic kidney disease N18.3
[2019-10-11] MEDS: cefTRIAXone 1,000 MG in sodium chloride 0.9% (plus) 50 ML 100 MG IV (17:16)
[2019-10-11] MEDS: pantoprazole DR 40 mg Tablet PO (17:59)
[2019-10-11 19:33] VITALS: BP 143/78; PULSE 62; RESP 20; TEMP 37.1; O2SAT 62
[2019-10-11 20:15] LABS: Glucose Point of Care 220 mg/dL (70-110)
[2019-10-11] MEDS: insulin glargine 100 units/1 mL 15 UNIT SUBCUT (20:31)
[2019-10-12] MEDS: heparin 5,000 unit/mL INJ 1 mL 5000 UNIT SUBCUT ×2 (00:59→08:14)
[2019-10-12 01:00] VITALS: BP 140/78; PULSE 80; RESP 20; TEMP 36.7; O2SAT 96
[2019-10-12 04:57] VITALS: BP 160/82; PULSE 86; RESP 20; TEMP 36.9; O2SAT 98
[2019-10-12 06:23] LABS: Glucose Point of Care 176 mg/dL (70-110)
[2019-10-12 08:11] VITALS: BP 167/83; PULSE 69; RESP 20; TEMP 36.7; O2SAT 96
[2019-10-12] MEDS: amlodipine 10 mg Tablet PO (08:12)
[2019-10-12] MEDS: lisinopril 10 mg Tablet PO (08:12)
[2019-10-12] MEDS: metoprolol tartrate 25 mg Tablet 50 MG PO (08:14)
[2019-10-12] MEDS: aspirin 81 mg EC Tablet PO (08:14)
[2019-10-12] MEDS: pantoprazole DR 40 mg Tablet PO (08:15)
[2019-10-12] MEDS: fluticasone nasal spray 16gm Btl 2 SPRAY NASAL (08:15)
[2019-10-12 10:57] LABS: Glucose Point of Care 199 mg/dL (70-110)
[2019-10-12] MEDS: ondansetron 2 mg/ML SDV 2 mL 4 MG IVP (11:13)
[2019-10-12 11:41] VITALS: BP 147/76; PULSE 63; RESP 20; TEMP 37.3; O2SAT 98
--- NOTE | 2019-10-12 12:28 | PM.DCS ---
Discharge Providers Date of Admission: 10/10/19 15:05 Date of Discharge: October 12, 2019 Attending Provider at Admission: Juju Perez MD Attending Provider at Discharge: Wendi Pa MD Primary Care Provider: DOCTOR NOT ON FILE Diagnoses at Discharge Discharge Diagnosis (1) Gastroenteritis: Status: Acute (2) DM type 2 (diabetes mellitus, type 2): Status: Acute (3) Hypertension: Status: Acute (4) Hyperglycemia: Status: Acute (5) Dehydration: Status: Acute (6) Acute worsening of stage 3 chronic kidney disease: Status: Acute Reason for Visit Reason for Visit: n/v Hospital Course Discharge Summary: Bj Marquez is a 58 year old male who carries history of chronic kidney disease stage III, CABG 2018 secondary to coronary perforation during cardiac catheterization, diabetes, hypertension, came in with chief complaint of nausea vomiting and diarrhea. Patient is stating that he is from [place] on a business trip,recently in [place] where he ate seafood and then started experiencing nausea after he woke up. He experienced more than 10 episodes of vomiting along diarrhea.Diagnosis in the ER revealed hypertension, tachycardia, extreme dehydration, lactic acidosis, intractable nausea and vomiting, afebrile, hemoconcentration, ketones negative, hyperglycemia, creatinine 1.3, mild abnormal transaminases, mild elevated lipase at 71, COVID antigen negative. Ct abdomen did not show acute abnormalities. CTA PE negative for PE. troponins mildly elevated upon admission, likely secondary to dehydration and then resolved. Hospital course notable for uncontrolled HTN, for which his metoprolol dose was increased and amlodidpine added to his regimen. Blood pressure well controlled on this regimen. He continued to have significant nausea which was slow to respond during course of admission but by day of discharge he is feeling much improved (estimated at 85% improved). Abdominal X ray was obtained on 10/10 to r/o ileus, study negative for the same but showed moderate amount of stool for which he was given magnesium citrate. Also added protonix with relief in symptoms. Acute hepatitis panel was negative. Transaminitis resolved at discharge. Hospital course also notable for hyperglycemia, controlled with insulin. His brother and sister in law drove from [place] today to pick him up. He is returning home. 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 deficits Discharge Data Data Completed and Pending: Completed Studies During Hospitalization Category Date Time Status CT abdomen pelvis w con* [id number] Stat Cat Scan 10/08/19 21:[address] angio chest PE protcl [id number] Stat Cat Scan 10/09/19 01:36 Completed XR abdomen 1V* 74 [id number] Routine Exams 10/10/19 17:34 Completed XR chest 1V brianna ble [id number] Stat Exams 10/08/19 20:32 Completed Pending at discharge Category Date Time Status CDIFF [Clostridio ides Difficile PCR ] Routine Lab 10/11/19 21:30 Results Enteric Bacterial Panel by PCR Rout ine Lab 10/11/19 21:30 Received Enteric Parasite Panel by PCR Routi ne Lab 10/11/19 21:30 Received Labs from last 24 hours 10/12/19 10/12/19 10/11/19 10:45 06:04 20:11 POC Glucose 199 176 220 10/11/19 16:35 POC Glucose 285 Vitals: Last Vital Signs Temp 99.1 F 10/12/19 11:41 Pulse 63 10/12/19 11:41 Resp 20 H 10/12/19 11:41 BP 147/76 10/12/19 11:41 Pulse Ox 98 10/12/19 11:41 Discharge Plan Discharge Patient Disposition: Home Condition: Stable Prescriptions: New sennosides-docusate sodium 8.6-50 mg Tablet 1 tab PO DAILY PRN (Reason: constipation) Qty: 0 RF: 0 amlodipine 10 mg Tablet 10 mg PO DAILY 30 Days Qty: 30 RF: 0 pantoprazole 40 mg Tablet,Delayed Release (Dr/Ec) 40 mg PO BID 30 Days Qty: 60 RF: 0 Continued Aspirin Low Dose 81 mg Tablet,Delayed Release (Dr/Ec) 81 mg PO DAILY RF: 0 lisinopril 10 mg tablet 10 mg PO DAILY RF: 0 hydrochlorothiazide 25 mg tablet 25 mg PO DAILY RF: 0 Stool Softener 100 mg Tablet 100 mg PO DAILY RF: 0 eplerenone 25 mg tablet 25 mg PO DAILY RF: 0 Novolog Flexpen U-100 Insulin 100 unit/mL (3 mL) insulin pen See Rx Instructions .ROUTE .COMPLEX RF: 0 Basaglar KwikPen U-100 Insulin 100 unit/mL (3 mL) insulin pen See Rx Instructions .ROUTE .COMPLEX RF: 0 Vitamin D3 50 mcg (2,000 unit) Tablet 50 mcg PO DAILY RF: 0 Probiotic 20 billion cell Capsule 20,000 mmu cells PO DAILY RF: 0 Changed metoprolol tartrate 25 mg tablet 50 mg PO BID 30 Days Qty: 60 RF: 0 Discharge Orders: Discharge Order (Routine); Ordered 10/12/19 Ordered By: Wendi Pa Discharge Diet: Advance as tolerated and GI Soft Discharge Activity: Resume usual activity Patient Instructions: Constipation - Adult, Laxative, Stimulant (By mouth), Amlodipine (By mouth), Pantoprazole (By mouth), Chronic Hypertension (DC) Discharge Date/Time: 10/12/19 13:12 Discharge Attestations Time Spent in Discharge Care*: greater than 30 min Specific Discharge Activities: Specific discharge activities: educating patient and educating and/or supporting family/caregiver Quality Metrics Clinical Quality Measures During this hospital stay, did patient experience: None Coding Level of Care Code Acute Customer Complaint Service Supervisor for [place] Fwd Diagnoses Gastroenteritis K52.9 DM type 2 (diabetes mellitus, type 2) E11.9 Hypertension I10 Hyperglycemia R73.9 Dehydration E86.0 Acute worsening of stage 3 chronic kidney disease N18.3
[2019-10-12 12:44] VITALS: BP 147/76; PULSE 63; RESP 20; TEMP 37.3; O2SAT 98
[2019-10-12 13:12] VITALS: BP 147/76; PULSE 63; RESP 20; TEMP 37.3; O2SAT 98
== END 2019-10-12 13:12 | disposition home or self-care (01) | DRG 392 ==
LOC: ER 20:27 → MEDSURG 10-09 00:13
PROVIDERS: Emergency Medicine; Admitting Provider Internal Medicine; Visit Provider Student in an Organized Health Care Education/Training Program
DX: K52.9 Noninfective gastroenteritis and colitis, unspecified (principal); E87.2 Acidosis; N17.9 Acute kidney failure, unspecified; E86.0 Dehydration; E11.22 Type 2 diabetes mellitus with diabetic chronic kidney disease; E11.65 Type 2 diabetes mellitus with hyperglycemia; I12.9 Hypertensive chronic kidney disease with stage 1 through stage 4 chronic kidney disease, or unspecified chronic kidney disease; N18.3 Chronic kidney disease, stage 3 (moderate); Z95.1 Presence of aortocoronary bypass graft; I45.10 Unspecified right bundle-branch block; I25.10 Atherosclerotic heart disease of native coronary artery without angina pectoris; Z79.82 Long term (current) use of aspirin; Z79.4 Long term (current) use of insulin
CPT/HCPCS: 12345; 36415; 36416; 36600; 71045; 71275; 74018; 74177; 80048; 80053; 80074; 81001; 82009; 82803; 82962; 83605; 83690; 83735; 84484; 85025; 85378; 87426; 87493; 87506; 93005; 96372; 96375; 99282; C9113; G0378; J0360; J0696; J1644; J1815 ×2; J2405; J2765; J3490; J7030; Q9967